=== PATIENT | female | born 1960 | race Caucasian/White ===

== ENCOUNTER 2018-07-01 00:36 | Outpatient (CLI) | payer BC, SELFPAY ==
--- NOTE | 2018-07-01 15:28 | DI.MAMMO_ITS ---
SYMPTOM/DIAGNOSIS: SCREENING Z00.00 MAMMOGRAM: 07/01 Mammograms were interpreted according to the usual protocol including computer analysis with CAD system, tomosynthesis and C view imaging. The breasts are heterogeneously dense. No dominant mass or clumped microcalcification identified in either breast. The current examination is compared with previous examinations including June 2017. No significant interval change in appearance in comparison with previous examinations. Skin thickening of the left breast noted consistent with prior radiation therapy. CONCLUSION: No specific evidence of malignancy at this time. Routine screening examinations suggested at yearly intervals due to the history of breast carcinoma. Category 1, breast density category C. MQSA ASSESSMENT OF FINDINGS: Negative. Category 1. Patient will receive a letter notifying them of these results. Bi-RADS category C. The breasts are heterogeneously dense, which may obscure small masses.
== END 2018-07-01 00:56 ==
PROVIDERS: PCP Nurse Practitioner Family; Visit Provider Nurse Practitioner Family
DX: Z12.31 Encounter for screening mammogram for malignant neoplasm of breast (principal); Z00.00 Encounter for general adult medical examination without abnormal findings; Z85.3 Personal history of malignant neoplasm of breast
CPT/HCPCS: 77063; 77067

== ENCOUNTER 2018-09-04 11:10 | Outpatient (CLI) | payer BC, SELFPAY ==
--- NOTE | 2018-09-04 11:20 | DI.RAD_ITS ---
SYMPTOMS/DIAGNOSIS: LEFT WRIST FX F/U LEFT WRIST: A healing nondisplaced vertical transverse fracture of the distal radial metaphysis is demonstrated.
== END 2018-09-04 11:30 ==
PROVIDERS: PCP Nurse Practitioner Family; Visit Provider Student in an Organized Health Care Education/Training Program
DX: S52.572A Other intraarticular fracture of lower end of left radius, initial encounter for closed fracture (principal)
CPT/HCPCS: 73110

== ENCOUNTER 2018-09-30 11:11 | Outpatient (CLI) | payer BC, SELFPAY ==
--- NOTE | 2018-09-30 11:06 | DI.RAD_ITS ---
SYMPTOM/DIAGNOSIS: F/U FX LEFT WRIST: Two views. Comparison is made with 08/17/18 and 09/04/18. There has been continued healing of the distal left radial fracture with a small component of the fracture mira at the articular surface. No new fractures or dislocations are seen. The soft tissues are unremarkabe. IMPRESSION: Healing distal left radial fracture.
== END 2018-09-30 11:31 ==
PROVIDERS: PCP Nurse Practitioner Family; Visit Provider Student in an Organized Health Care Education/Training Program
DX: S52.572D Other intraarticular fracture of lower end of left radius, subsequent encounter for closed fracture with routine healing (principal)
CPT/HCPCS: 73100

== ENCOUNTER 2019-07-03 02:20 | Outpatient (CLI) | payer BC, SELFPAY ==
--- NOTE | 2019-07-03 13:48 | DI.MAMMO_ITS ---
EXAM: MG MAMMO SCREENING 60 MIN DUR CLINICAL HISTORY: SCREENING, PERSONAL H/O BREAST CA, Z85.3,Z00.00, PREVENTATIVE HEALTH CARE TECHNIQUE: Bilateral full field digital CC and MLO mammographic images were obtained with 3D tomosyn thesis and utilizing computer aided detection (CAD). COMPARISON: Available for comparison. FINDINGS: Masses/Architectural Distortion: None seen. The patient is status post left lumpectomy. Microcalcifications: No suspicious pleomorphic-type are seen. Skin Thickening/Nipple Retraction: There is again seen thickening of the skin of the left breast cons istent with prior radiation therapy. IMPRESSION: 1. No significant interval change with no specific features of malignancy noted. 2. Unless there is more urgent need, screening mammography is recommended, as per [employer] guidelines. BI-RADS Cat 2 - Benign Findings Breast Density - Category C - Heterogeneously dense The mammogram demonstrates the patient's breast tissue is dense. Dense breast tissue is very common a nd is not abnormal but dense breast tissue can make it harder to find cancer on a mammogram. Also, de nse breast tissue may increase their breast cancer risk. This information about the result of the [facility] mogram report was provided to the patient to raise their awareness. Use this report when you speak wi th the patient about their risks for breast cancer, which includes their family history. At that time , you may recommend for more screening tests (Ultrasound or MRI) as they might be useful based on the ir risk. A negative radiographic report should not delay biopsy if a dominant or clinically suspicious mass is present. Up to ten percent of cancers are not identified on mammography. A negative report may reinforce clinical impression. Adenosis and dense breasts may obscure an underlying neoplasm. False positive reports average 6 to 10%. Patient will receive a letter notifying them of these results.
== END 2019-07-03 02:40 ==
PROVIDERS: PCP Nurse Practitioner Family; Visit Provider Nurse Practitioner Family
DX: Z00.00 Encounter for general adult medical examination without abnormal findings (principal); Z12.31 Encounter for screening mammogram for malignant neoplasm of breast; Z85.3 Personal history of malignant neoplasm of breast; Z98.890 Other specified postprocedural states; Z92.3 Personal history of irradiation
CPT/HCPCS: 77063; 77067